=== PATIENT | male | born 1930 | race African-American/Black ===

== ENCOUNTER 2017-05-02 10:37 | Emergency (ER) | payer OTHER ==
[~2017-05-02] VITALS: Ht 177.8 cm; Wt 80.0 kg
[~2017-05-02 10:37] MED LIST: ALPR0.2582 PO; ATOR40TA70 PO; DONE10TA11 PO; FURO20TA4 PO; LISI-186 PO; RISP0.2514 PO
[2017-05-02] MEDS ORDERED: FLUMAZENIL 0.1 MG/ML 5ML VIAL IV ONE (11:15)
[2017-05-02 11:31] LABS: BASOPHILS % 0.5 % (0.0-2.0); EOSINOPHILS % 1.8 % (0.0-5.0); HEMATOCRIT. 38.5 % (42.0-52.0); HEMOGLOBIN. 13.4 g/dL (14.0-18.0); LYMPHOCYTES % 32.7 % (20.0-50.0); MEAN CORPUSCULAR HEMOGLOBIN 31.4 pg (28.0-32.0); MEAN CORPUSCULAR VOLUME 90.1 fL (80.0-94.0); MEAN PLATELET VOLUME 9.4 fl (7.4-10.4); MONOCYTES % 5.4 % (2.0-8.0); NEUTROPHILS % 59.6 % (40.0-76.0); PLATELET 130 x1000/uL (130-400); RED BLOOD CELL COUNT 4.27 mill/uL (4.7-6.1); RED CELL DISTRIBUTION WIDTH 12.8 % (11.6-14.6)
[2017-05-02 11:46] LABS: CARBON DIOXIDE 32 mEq/L (21-32); CHLORIDE 104 mEq/L (98-107); ETHANOL BLOOD < 10 mg/dL
[2017-05-02 12:08] LABS: CLARITY URINE CLOUDY (CLEAR); COLOR URINE YELLOW (YELLOW); GLUCOSE URINE NEGATIVE (NEGATIVE); KETONES URINE NEGATIVE (NEGATIVE); LEUKOCYTE ESTERASE URINE NEGATIVE (NEGATIVE); NITRITE URINE NEGATIVE (NEGATIVE); OCCULT BLOOD URINE NEGATIVE (NEGATIVE); PH URINE 5.5 (4.5-8.0); PROTEIN URINE NEGATIVE (NEGATIVE); SPECIFIC GRAVITY URINE 1.021 (1.005-1.030)
[2017-05-02 12:22] LABS: *AMPHETAMINES SCREEN URINE NEGATIVE (NEGATIVE); *BARBITURATES SCREEN URINE NEGATIVE (NEGATIVE); *BENZODIAZEPINES SCREEN URINE NEGATIVE (NEGATIVE); *COCAINE SCREEN URINE NEGATIVE (NEGATIVE); CANNABINOID URINE SCREEN NEGATIVE (NEGATIVE); METHADONE URINE SCREEN NEGATIVE (NEGATIVE); OPIATES URINE SCREEN NEGATIVE (NEGATIVE); PHENCYCLIDINE URINE SCREEN NEGATIVE (NEGATIVE)
[2017-05-02 17:53] VITALS: BP 135/58
== END 2017-05-02 18:00 | disposition short-term general hospital (02) ==
LOC: ER 10:46 → CANBEDREQ 20:02
DX: G93.40 Encephalopathy, unspecified (principal); J44.9 Chronic obstructive pulmonary disease, unspecified; I10 Essential (primary) hypertension; E78.00 Pure hypercholesterolemia, unspecified; F03.90 Unspecified dementia, unspecified severity, without behavioral disturbance, psychotic disturbance, mood disturbance, and anxiety
CPT/HCPCS: 36415; 70450; 71010; 80053; 80305; 81001; 82962; 84484; 85025; 93005; 96374; 99285; G0482; J3490

== ENCOUNTER 2017-07-02 11:51 | Inpatient (IN) | payer OTHER ==
[~2017-07-02] VITALS: Ht 180.3 cm; Wt 81.2 kg
[~2017-07-02 11:51] MED LIST changes: +ALPR0.25 PO; -ALPR0.2582 PO
[2017-07-02] MEDS ORDERED: SODIUM CHLORIDE 0.9% 1,000 ML IV ONE (12:01)
[2017-07-02 12:40] LABS: CLARITY URINE CLEAR (CLEAR); COLOR URINE YELLOW (YELLOW); GLUCOSE URINE NEGATIVE (NEGATIVE); KETONES URINE NEGATIVE (NEGATIVE); LEUKOCYTE ESTERASE URINE NEGATIVE (NEGATIVE); NITRITE URINE NEGATIVE (NEGATIVE); OCCULT BLOOD URINE NEGATIVE (NEGATIVE); PROTEIN URINE NEGATIVE (NEGATIVE); SPECIFIC GRAVITY URINE 1.021 (1.005-1.030); UROBILINOGEN URINE 0.2 E.U./dL (0.2-1.0)
[2017-07-02 12:52] LABS: BASOPHILS % 0.7 % (0.0-2.0); EOSINOPHILS % 1.9 % (0.0-5.0); HEMATOCRIT. 38.7 % (42.0-52.0); HEMOGLOBIN. 13.4 g/dL (14.0-18.0); MEAN CORPUSCULAR HEMOGLOBIN 31.5 pg (28.0-32.0); MEAN CORPUSCULAR VOLUME 91.2 fL (80.0-94.0); MEAN PLATELET VOLUME 9.9 fl (7.4-10.4); MONOCYTES % 6.3 % (2.0-8.0); NEUTROPHILS % 55.1 % (40.0-76.0); PLATELET 109 x1000/uL (130-400); RED BLOOD CELL COUNT 4.24 mill/uL (4.7-6.1); RED CELL DISTRIBUTION WIDTH 13.2 % (11.6-14.6)
[2017-07-02 12:56] LABS: INR 1.2; PROTHROMBIN TIME 12.2 sec (9.4-11.6)
[2017-07-02 12:59] LABS: AMMONIA 16 uMol/L (<32); CARBON DIOXIDE 30 mEq/L (21-32); CHLORIDE 106 mEq/L (98-107)
[2017-07-02 13:06] LABS: TROPONIN I < 0.02 ng/mL (0.00-0.04)
[2017-07-02 13:07] LABS: *AMPHETAMINES SCREEN URINE NEGATIVE (NEGATIVE); *BARBITURATES SCREEN URINE NEGATIVE (NEGATIVE); *BENZODIAZEPINES SCREEN URINE NEGATIVE (NEGATIVE); *COCAINE SCREEN URINE NEGATIVE (NEGATIVE); CANNABINOID URINE SCREEN NEGATIVE (NEGATIVE); METHADONE URINE SCREEN NEGATIVE (NEGATIVE); OPIATES URINE SCREEN NEGATIVE (NEGATIVE); PHENCYCLIDINE URINE SCREEN NEGATIVE (NEGATIVE)
[2017-07-02] MEDS ORDERED: GUAIFENESIN 200MG/10ML SUGAR FREE UDC PO PRN (17:30)
[2017-07-02] MEDS ORDERED: DOCUSATE SODIUM 100MG CAPSULE PO PRN (17:30)
[2017-07-02] MEDS ORDERED: ONDANSETRON HCL 4MG/2ML VIAL IV PRN (17:30)
[2017-07-02] MEDS ORDERED: ACETAMINOPHEN 325MG TABLET PO PRN (17:30)
[2017-07-02] MEDS ORDERED: NITROGLYCERIN 0.4MG TABLET SL SL PRN (17:30)
[2017-07-02] MEDS ORDERED: IPRATROPIUM/ALBUTEROL 0.5-3(2.5)MG/3ML NEB INH PRN (17:30)
[2017-07-02] MEDS ORDERED: CLONIDINE 0.1MG TABLET PO PRN (17:30)
[2017-07-02] MEDS ORDERED: MAGNESIUM/ALUMINUM HYDROXIDE/SIMETHICONE 30ML UDC PO PRN (17:30)
[2017-07-02] MEDS ORDERED: TRAMADOL 50MG TABLET PO PRN (18:00)
[2017-07-02] MEDS ORDERED: NA PHOS,M-B/NA PHOS,DI-BA ENEMA 118ML PR PRN (20:00)
[2017-07-02 22:37] VITALS: BP 131/58
[2017-07-02] MEDS: LISINOPRIL 20MG TABLET PO SCH (23:25)
[2017-07-02] MEDS: FAMOTIDINE 20MG/2ML VIAL IV SCH (23:25)
[2017-07-03] VITALS: BP 123/51
[2017-07-03 00:41] LABS: CREATINE KINASE 96 IU/L (39-308); CREATINE KINASE MB FRACTION 1.1 ng/mL (0.5-3.6); TROPONIN I < 0.02 ng/mL (0.00-0.04)
[2017-07-03] MEDS ORDERED: LEVOFLOXACIN 500MG PREMIX 100 ML IV SCH (02:00)
[2017-07-03] MEDS: HALOPERIDOL LACTATE 5MG/ML VIAL IM PRN ×2 (03:05→08:17)
[2017-07-03 04:00] VITALS: BP 107/49
[2017-07-03 07:15] LABS: CREATINE KINASE MB FRACTION 1.1 ng/mL (0.5-3.6); TROPONIN I 0.04 ng/mL (0.00-0.04)
[2017-07-03 07:48] VITALS: BP 108/60
[2017-07-03] MEDS ORDERED: ENOXAPARIN 40MG/0.4ML SYR SUBCUT SCH (09:00)
[2017-07-03] MEDS ORDERED: ASPIRIN 325MG EC TABLET PO SCH (09:00)
[2017-07-03] MEDS ORDERED: DONEPEZIL HCL 10MG TABLET PO SCH (09:00)
[2017-07-03 10:00] VITALS: BP 130/63
[2017-07-03] MEDS: FAMOTIDINE 20MG/2ML VIAL IV SCH (10:01)
[2017-07-03] MEDS: LISINOPRIL 20MG TABLET PO SCH (10:02)
[2017-07-03 12:00] VITALS: BP 118/61
[2017-07-03 16:00] VITALS: BP 122/66
== END 2017-07-03 17:10 | disposition short-term general hospital (02) | DRG 92 ==
LOC: ER 11:51 → 6WST 13:18 → EDBEDREQTM 13:24 → EDBEDREQ 13:24 → ENRESERV 19:04 → EDBEDREQ 21:55 → 6WST 22:56
PROVIDERS: ADMIT Internal Medicine; ATTEND Internal Medicine
DX: G92 Toxic encephalopathy (principal); J44.1 Chronic obstructive pulmonary disease with (acute) exacerbation; G30.9 Alzheimer's disease, unspecified; F02.80 Dementia in other diseases classified elsewhere, unspecified severity, without behavioral disturbance, psychotic disturbance, mood disturbance, and anxiety; E78.00 Pure hypercholesterolemia, unspecified; E78.5 Hyperlipidemia, unspecified; I10 Essential (primary) hypertension; Z86.73 Personal history of transient ischemic attack (TIA), and cerebral infarction without residual deficits
CPT/HCPCS: 36415; 70450; 71010; 80053; 80305; 80307; 80329; 81003; 82140; 82550; 82553; 83605; 83690; 83880; 84443; 84484; 85025; 85610; 87086; 93005; 99285; C1893; J1630; J1650; J1956; J3490; J7030; A4315

== ENCOUNTER 2017-09-25 18:36 | Emergency (ER) | payer OTHER ==
[~2017-09-25] VITALS: Ht 180.3 cm; Wt 98.0 kg
[2017-09-26 00:06] VITALS: BP 106/49
== END 2017-09-26 00:12 | disposition home or self-care (01) ==
LOC: ER 18:47
DX: F03.90 Unspecified dementia, unspecified severity, without behavioral disturbance, psychotic disturbance, mood disturbance, and anxiety (principal); J44.9 Chronic obstructive pulmonary disease, unspecified; I10 Essential (primary) hypertension; E78.00 Pure hypercholesterolemia, unspecified; Z86.73 Personal history of transient ischemic attack (TIA), and cerebral infarction without residual deficits; W18.30XA Fall on same level, unspecified, initial encounter; Y93.89 Activity, other specified; Y99.8 Other external cause status; Y92.89 Other specified places as the place of occurrence of the external cause
CPT/HCPCS: 70450; 99284

== ENCOUNTER 2017-09-27 19:08 | Inpatient (IN) | payer OTHER ==
[~2017-09-27] VITALS: Ht 180.3 cm; Wt 72.1 kg
[2017-09-27 20:51] LABS: CLARITY URINE CLEAR (CLEAR); COLOR URINE YELLOW (YELLOW); KETONES URINE TRACE (NEGATIVE); LEUKOCYTE ESTERASE URINE TRACE (NEGATIVE); NITRITE URINE NEGATIVE (NEGATIVE); OCCULT BLOOD URINE TRACE (NEGATIVE); PROTEIN URINE TRACE (NEGATIVE); SPECIFIC GRAVITY URINE 1.019 (1.005-1.030)
[2017-09-27 21:17] LABS: BASOPHILS % 0.2 % (0.0-2.0); EOSINOPHILS % 1.3 % (0.0-5.0); HEMATOCRIT. 39.1 % (42.0-52.0); HEMOGLOBIN. 13.6 g/dL (14.0-18.0); LYMPHOCYTES % 25.1 % (20.0-50.0); MEAN CORPUSCULAR HEMOGLOBIN 31.5 pg (28.0-32.0); MEAN CORPUSCULAR VOLUME 90.5 fL (80.0-94.0); MEAN PLATELET VOLUME 9.5 fl (7.4-10.4); MONOCYTES % 7.6 % (2.0-8.0); NEUTROPHILS % 65.8 % (40.0-76.0); PLATELET 156 x1000/uL (130-400); RED BLOOD CELL COUNT 4.32 mill/uL (4.7-6.1)
[2017-09-27 21:21] LABS: INR 1.1; PROTHROMBIN TIME 11.8 sec (9.4-11.6)
[2017-09-27 21:29] LABS: CARBON DIOXIDE 26 mEq/L (21-32); CHLORIDE 103 mEq/L (98-107)
[2017-09-27 21:30] LABS: AMMONIA 26 uMol/L (<32)
[2017-09-27] MEDS ORDERED: LORAZEPAM 2MG/ML CPJ IV ONE (21:30)
[2017-09-27 21:34] LABS: CREATINE KINASE 199 IU/L (39-308); TROPONIN I < 0.02 ng/mL (0.00-0.04)
[2017-09-28] VITALS (7 sets, daily range): BP systolic 93–117; BP diastolic 56–69
[2017-09-28] MEDS ORDERED: CEFTRIAXONE 1 G PREMIX 50 ML IV ONE (00:45)
[2017-09-28] MEDS ORDERED: ACETAMINOPHEN 325MG TABLET PO PRN (05:15)
[2017-09-28] MEDS ORDERED: HYDROCODONE/ACETAMINOPHEN 5/325MG TABLET PO PRN (05:15)
[2017-09-28] MEDS ORDERED: CLONIDINE 0.1MG TABLET PO PRN (05:15)
[2017-09-28] MEDS: SODIUM CHLORIDE 0.45% 1,000 ML IV SCH ×2 (05:53→17:24)
[2017-09-28] MEDS: ENOXAPARIN 40MG/0.4ML SYR SUBCUT SCH (09:00)
[2017-09-28] MEDS: LISINOPRIL 5MG TABLET PO SCH (09:00)
[2017-09-28] MEDS: FUROSEMIDE 20MG TABLET PO SCH (09:31)
[2017-09-28] MEDS: RISPERIDONE 0.25MG TABLET PO SCH ×2 (09:31→17:24)
[2017-09-28] MEDS: DONEPEZIL HCL 10MG TABLET PO SCH (09:31)
[2017-09-28] MEDS ORDERED: LORAZEPAM 1MG TABLET PO PRN (15:00)
[2017-09-28] MEDS ORDERED: LORAZEPAM 2MG/ML CPJ IV PRN (15:00)
[2017-09-28] MEDS ORDERED: ALPRAZOLAM 0.25 MG TABLET PO SCH (21:00)
[2017-09-28] MEDS ORDERED: ATORVASTATIN CALCIUM 40MG TABLET PO SCH (21:00)
[2017-09-29] VITALS: BP 119/63
[2017-09-29 04:00] VITALS: BP 129/64
[2017-09-29 08:00] VITALS: BP 139/61
[2017-09-29 08:20] LABS: BASOPHILS % 0.3 % (0.0-2.0); EOSINOPHILS % 1.4 % (0.0-5.0); HEMATOCRIT. 39.1 % (42.0-52.0); HEMOGLOBIN. 13.7 g/dL (14.0-18.0); LYMPHOCYTES % 21.9 % (20.0-50.0); MEAN CORPUSCULAR HEMOGLOBIN 31.8 pg (28.0-32.0); MEAN CORPUSCULAR VOLUME 90.4 fL (80.0-94.0); MEAN PLATELET VOLUME 9.5 fl (7.4-10.4); MONOCYTES % 6.7 % (2.0-8.0); NEUTROPHILS % 69.7 % (40.0-76.0); PLATELET 156 x1000/uL (130-400); RED BLOOD CELL COUNT 4.33 mill/uL (4.7-6.1); RED CELL DISTRIBUTION WIDTH 13.3 % (11.6-14.6)
[2017-09-29 08:42] LABS: CHLORIDE 104 mEq/L (98-107)
[2017-09-29 08:47] LABS: CARBON DIOXIDE 27 mEq/L (21-32)
[2017-09-29] MEDS: ENOXAPARIN 40MG/0.4ML SYR SUBCUT SCH (09:43)
[2017-09-29] MEDS: LISINOPRIL 5MG TABLET PO SCH (09:43)
[2017-09-29] MEDS: DONEPEZIL HCL 10MG TABLET PO SCH (09:43)
[2017-09-29] MEDS: FUROSEMIDE 20MG TABLET PO SCH (09:43)
[2017-09-29] MEDS: RISPERIDONE 0.25MG TABLET PO SCH (09:43)
[2017-09-29 12:00] VITALS: BP 103/49
[2017-09-29 15:54] VITALS: BP 100/57
[2017-09-29 16:00] VITALS: BP 100/57
== END 2017-09-29 16:24 | disposition short-term general hospital (02) | DRG 71 ==
LOC: ER 19:13 → ENRESERV 09-28 02:23 → 7WST 09-28 03:20
PROVIDERS: ADMIT Internal Medicine; ATTEND Internal Medicine
DX: G93.41 Metabolic encephalopathy (principal); E46 Unspecified protein-calorie malnutrition; I50.9 Heart failure, unspecified; E86.0 Dehydration; I11.0 Hypertensive heart disease with heart failure; G40.909 Epilepsy, unspecified, not intractable, without status epilepticus; F03.90 Unspecified dementia, unspecified severity, without behavioral disturbance, psychotic disturbance, mood disturbance, and anxiety; E78.00 Pure hypercholesterolemia, unspecified; I25.10 Atherosclerotic heart disease of native coronary artery without angina pectoris; Z79.899 Other long term (current) drug therapy; Z68.22 Body mass index [BMI] 22.0-22.9, adult
CPT/HCPCS: 36415; 71010; 80048; 80053; 81001; 82140; 82550; 83605; 83880; 84443; 84484; 85025; 85610; 87040; 87086; 93005; J0696; J1650; J2060

== ENCOUNTER 2017-10-15 19:20 | Emergency (ER) | payer OTHER ==
[~2017-10-15] VITALS: Ht 180.3 cm; Wt 87.0 kg
[2017-10-15 23:30] LABS: BASOPHILS % 0.8 % (0.0-2.0); HEMATOCRIT. 37.3 % (42.0-52.0); HEMOGLOBIN. 12.6 g/dL (14.0-18.0); LYMPHOCYTES % 21.1 % (20.0-50.0); MEAN CORPUSCULAR HEMOGLOBIN 31.1 pg (28.0-32.0); MEAN CORPUSCULAR VOLUME 91.9 fL (80.0-94.0); MEAN PLATELET VOLUME 9.4 fl (7.4-10.4); MONOCYTES % 6.8 % (2.0-8.0); NEUTROPHILS % 69.3 % (40.0-76.0); PLATELET 150 x1000/uL (130-400); RED BLOOD CELL COUNT 4.06 mill/uL (4.7-6.1)
[2017-10-15 23:44] LABS: CARBON DIOXIDE 29 mEq/L (21-32); CHLORIDE 106 mEq/L (98-107)
[2017-10-16 05:20] VITALS: BP 112/71
== END 2017-10-16 05:26 | disposition home or self-care (01) ==
LOC: ER 19:23
DX: J06.9 Acute upper respiratory infection, unspecified (principal); F03.90 Unspecified dementia, unspecified severity, without behavioral disturbance, psychotic disturbance, mood disturbance, and anxiety; I10 Essential (primary) hypertension; G40.909 Epilepsy, unspecified, not intractable, without status epilepticus; E78.00 Pure hypercholesterolemia, unspecified; F17.210 Nicotine dependence, cigarettes, uncomplicated
CPT/HCPCS: 36415; 71045; 80053; 85025; 99285

== ENCOUNTER 2017-10-20 18:25 | Emergency (ER) | payer OTHER ==
[~2017-10-20] VITALS: Ht 175.3 cm; Wt 85.0 kg
[2017-10-20] MEDS ORDERED: ACETAMINOPHEN 325MG TABLET PO STA (18:41)
[2017-10-20] MEDS ORDERED: METOCLOPRAMIDE HCL 10MG/2ML VIAL IV ONE (18:45)
[2017-10-20 20:09] LABS: BASOPHILS % 0.4 % (0.0-2.0); HEMATOCRIT. 35.8 % (42.0-52.0); LYMPHOCYTES % 34.8 % (20.0-50.0); MEAN CORPUSCULAR HEMOGLOBIN 30.9 pg (28.0-32.0); MEAN CORPUSCULAR VOLUME 92.1 fL (80.0-94.0); MEAN PLATELET VOLUME 9.3 fl (7.4-10.4); MONOCYTES % 7.4 % (2.0-8.0); NEUTROPHILS % 53.4 % (40.0-76.0); PLATELET 145 x1000/uL (130-400); RED BLOOD CELL COUNT 3.89 mill/uL (4.7-6.1); RED CELL DISTRIBUTION WIDTH 13.9 % (11.6-14.6)
[2017-10-20 20:17] LABS: INR 1.2; PROTHROMBIN TIME 12.1 sec (9.4-11.6)
[2017-10-20 20:24] LABS: CHLORIDE 107 mEq/L (98-107)
[2017-10-20 20:35] LABS: CARBON DIOXIDE 28 mEq/L (21-32)
[2017-10-20 21:32] LABS: CLARITY URINE CLEAR (CLEAR); COLOR URINE YELLOW (YELLOW); KETONES URINE NEGATIVE (NEGATIVE); LEUKOCYTE ESTERASE URINE NEGATIVE (NEGATIVE); NITRITE URINE NEGATIVE (NEGATIVE); OCCULT BLOOD URINE NEGATIVE (NEGATIVE); PH URINE 6.5 (4.5-8.0); PROTEIN URINE NEGATIVE (NEGATIVE)
[2017-10-21 00:48] VITALS: BP 116/72
== END 2017-10-21 00:51 | disposition home or self-care (01) ==
LOC: ER 18:46
DX: F03.90 Unspecified dementia, unspecified severity, without behavioral disturbance, psychotic disturbance, mood disturbance, and anxiety (principal); I10 Essential (primary) hypertension; E78.00 Pure hypercholesterolemia, unspecified; R79.1 Abnormal coagulation profile
CPT/HCPCS: 36415; 70450; 71045; 80053; 81003; 83605; 83880; 85025; 85610; 87040; 87086; 93005; 96374; 99285; J2765

== ENCOUNTER 2017-11-22 15:05 | Emergency (ER) | payer OTHER ==
[~2017-11-22] VITALS: Ht 182.9 cm; Wt 75.0 kg
[~2017-11-22 15:05] MED LIST changes: -DONE10TA11 PO; +KEPP500 PO
[2017-11-22 16:31] LABS: INR 1.2
[2017-11-22 16:33] LABS: BASOPHILS % 0.6 % (0.0-2.0); EOSINOPHILS % 2.4 % (0.0-5.0); HEMATOCRIT. 38.3 % (42.0-52.0); HEMOGLOBIN. 13.3 g/dL (14.0-18.0); LYMPHOCYTES % 37.4 % (20.0-50.0); MEAN CORPUSCULAR HEMOGLOBIN 31.6 pg (28.0-32.0); MEAN CORPUSCULAR VOLUME 91.1 fL (80.0-94.0); MONOCYTES % 7.3 % (2.0-8.0); NEUTROPHILS % 52.3 % (40.0-76.0); PLATELET 111 x1000/uL (130-400); RED CELL DISTRIBUTION WIDTH 13.1 % (11.6-14.6)
[2017-11-22 16:35] LABS: AMMONIA < 25 uMol/L (<32)
[2017-11-22 16:42] LABS: CHLORIDE 101 mEq/L (98-107); ETHANOL BLOOD < 10 mg/dL; TROPONIN I < 0.02 ng/mL (0.00-0.04)
[2017-11-22 21:30] VITALS: BP 111/50
== END 2017-11-22 21:47 | disposition home or self-care (01) ==
LOC: ER 15:30
DX: F03.90 Unspecified dementia, unspecified severity, without behavioral disturbance, psychotic disturbance, mood disturbance, and anxiety (principal); R41.82 Altered mental status, unspecified; I48.91 Unspecified atrial fibrillation; D64.9 Anemia, unspecified; E78.00 Pure hypercholesterolemia, unspecified; I11.0 Hypertensive heart disease with heart failure; I50.9 Heart failure, unspecified; G40.909 Epilepsy, unspecified, not intractable, without status epilepticus
CPT/HCPCS: 36415; 80053; 80307; 80329; 82140; 82962; 84443; 84484; 85025; 85610; 93005; 99285; G0482

== ENCOUNTER 2017-12-19 07:10 | Emergency (ER) | payer OTHER ==
[~2017-12-19] VITALS: Ht 175.3 cm; Wt 73.0 kg
[2017-12-19 08:14] LABS: HEMATOCRIT. 41.6 % (42.0-52.0); HEMOGLOBIN. 14.1 g/dL (14.0-18.0); MEAN CORPUSCULAR HEMOGLOBIN 31.2 pg (28.0-32.0); MEAN CORPUSCULAR VOLUME 91.9 fL (80.0-94.0); MEAN PLATELET VOLUME 9.3 fl (7.4-10.4); PLATELET 147 x1000/uL (130-400); RED BLOOD CELL COUNT 4.52 mill/uL (4.7-6.1)
[2017-12-19 08:20] LABS: CHLORIDE 106 mEq/L (98-107); INR 1.1; PROTHROMBIN TIME 11.8 sec (9.4-11.6)
[2017-12-19 08:39] LABS: PLATELET ESTIMATE NORMAL
[2017-12-19 11:32] LABS: CLARITY URINE CLEAR (CLEAR); COLOR URINE YELLOW (YELLOW); KETONES URINE NEGATIVE (NEGATIVE); LEUKOCYTE ESTERASE URINE NEGATIVE (NEGATIVE); NITRITE URINE NEGATIVE (NEGATIVE); OCCULT BLOOD URINE NEGATIVE (NEGATIVE); PH URINE 6.5 (4.5-8.0); PROTEIN URINE NEGATIVE (NEGATIVE); SPECIFIC GRAVITY URINE 1.013 (1.005-1.030); UROBILINOGEN URINE 0.2 E.U./dL (0.2-1.0)
[2017-12-19 15:25] VITALS: BP 132/76
== END 2017-12-19 15:40 | disposition home or self-care (01) ==
LOC: ER 07:26
DX: R53.1 Weakness (principal); F03.90 Unspecified dementia, unspecified severity, without behavioral disturbance, psychotic disturbance, mood disturbance, and anxiety
CPT/HCPCS: 36415; 70450; 71045; 80053; 81003; 83605; 85025; 85610; 87040; 87086; 93005; 99285

== ENCOUNTER 2017-12-24 17:32 | Emergency (ER) | payer OTHER ==
[~2017-12-24] VITALS: Ht 177.8 cm; Wt 77.0 kg
[2017-12-24 17:35] VITALS: BP 108/55
[2017-12-24 19:10] LABS: BASOPHILS % 0.4 % (0.0-2.0); CHLORIDE 108 mEq/L (98-107); EOSINOPHILS % 2.5 % (0.0-5.0); HEMATOCRIT. 37.6 % (42.0-52.0); HEMOGLOBIN. 12.8 g/dL (14.0-18.0); LYMPHOCYTES % 33.3 % (20.0-50.0); MEAN CORPUSCULAR HEMOGLOBIN 31.4 pg (28.0-32.0); MEAN CORPUSCULAR VOLUME 91.9 fL (80.0-94.0); MEAN PLATELET VOLUME 9.3 fl (7.4-10.4); MONOCYTES % 7.8 % (2.0-8.0); PLATELET 119 x1000/uL (130-400); RED BLOOD CELL COUNT 4.09 mill/uL (4.7-6.1); RED CELL DISTRIBUTION WIDTH 12.9 % (11.6-14.6)
== END 2017-12-24 23:35 | disposition home or self-care (01) ==
LOC: ER 17:42
DX: R06.00 Dyspnea, unspecified (principal); I11.9 Hypertensive heart disease without heart failure; R00.1 Bradycardia, unspecified; I49.1 Atrial premature depolarization; F02.80 Dementia in other diseases classified elsewhere, unspecified severity, without behavioral disturbance, psychotic disturbance, mood disturbance, and anxiety; G30.9 Alzheimer's disease, unspecified
CPT/HCPCS: 36415; 71045; 80053; 82962; 83880; 84484; 85025; 93005; 99285

== ENCOUNTER 2018-01-21 23:14 | Emergency (ER) | payer OTHER ==
[~2018-01-21] VITALS: Ht 182.9 cm; Wt 75.0 kg
[2018-01-22 00:38] LABS: BASOPHILS % 0.7 % (0.0-2.0); EOSINOPHILS % 1.3 % (0.0-5.0); HEMATOCRIT. 37.3 % (42.0-52.0); LYMPHOCYTES % 31.2 % (20.0-50.0); MEAN CORPUSCULAR HEMOGLOBIN 31.6 pg (28.0-32.0); MEAN CORPUSCULAR VOLUME 90.6 fL (80.0-94.0); MEAN PLATELET VOLUME 8.9 fl (7.4-10.4); MONOCYTES % 7.5 % (2.0-8.0); NEUTROPHILS % 59.3 % (40.0-76.0); PLATELET 123 x1000/uL (130-400); RED BLOOD CELL COUNT 4.11 mill/uL (4.7-6.1); RED CELL DISTRIBUTION WIDTH 13.3 % (11.6-14.6)
[2018-01-22 00:45] LABS: CHLORIDE 109 mEq/L (98-107); INR 1.2
[2018-01-22 00:49] LABS: ETHANOL BLOOD < 10 mg/dL
[2018-01-22 00:54] LABS: CREATINE KINASE 57 IU/L (39-308)
[2018-01-22 05:44] LABS: CLARITY URINE CLEAR (CLEAR); COLOR URINE YELLOW (YELLOW); KETONES URINE NEGATIVE (NEGATIVE); LEUKOCYTE ESTERASE URINE NEGATIVE (NEGATIVE); NITRITE URINE NEGATIVE (NEGATIVE); OCCULT BLOOD URINE NEGATIVE (NEGATIVE); PH URINE 5.5 (4.5-8.0); PROTEIN URINE NEGATIVE (NEGATIVE); SPECIFIC GRAVITY URINE 1.027 (1.005-1.030); UROBILINOGEN URINE 0.2 E.U./dL (0.2-1.0)
[2018-01-22 06:20] LABS: *BARBITURATES SCREEN URINE NEGATIVE (NEGATIVE); *BENZODIAZEPINES SCREEN URINE NEGATIVE (NEGATIVE); *COCAINE SCREEN URINE NEGATIVE (NEGATIVE); CANNABINOID URINE SCREEN NEGATIVE (NEGATIVE); METHADONE URINE SCREEN NEGATIVE (NEGATIVE); OPIATES URINE SCREEN NEGATIVE (NEGATIVE)
[2018-01-22 06:21] LABS: *AMPHETAMINES SCREEN URINE NEGATIVE (NEGATIVE)
[2018-01-22 06:46] LABS: PHENCYCLIDINE URINE SCREEN NEGATIVE (NEGATIVE)
[2018-01-22 08:09] VITALS: BP 126/59
== END 2018-01-22 08:16 | disposition short-term general hospital (02) ==
LOC: ER 23:14
DX: R41.82 Altered mental status, unspecified (principal); G40.909 Epilepsy, unspecified, not intractable, without status epilepticus; R00.1 Bradycardia, unspecified
CPT/HCPCS: 36415; 70450; 71045; 80053; 80185; 80305; 80307; 80329; 81003; 82550; 84443; 84484; 85025; 85610; 86850; 86900; 86901; 93005; 99285; G0482

== ENCOUNTER 2018-03-22 13:38 | Emergency (ER) | payer OTHER ==
[~2018-03-22] VITALS: Ht 172.7 cm; Wt 59.0 kg
[~2018-03-22 13:38] MED LIST changes: -ALPR0.25 PO
[2018-03-22] MEDS ORDERED: SODIUM CHLORIDE 0.9% 1000ML BAG (SEPSIS BOLUS) IV ONE (14:30)
[2018-03-22 15:11] LABS: CHLORIDE 105 mEq/L (98-107); PROTHROMBIN TIME 21.4 sec (9.4-11.6)
[2018-03-22 15:21] LABS: BASOPHILS % 0.3 % (0.0-2.0); EOSINOPHILS % 1.8 % (0.0-5.0); HEMATOCRIT. 33.3 % (42.0-52.0); HEMOGLOBIN. 11.3 g/dL (14.0-18.0); LYMPHOCYTES % 23.5 % (20.0-50.0); MEAN CORPUSCULAR HEMOGLOBIN 32.2 pg (28.0-32.0); MEAN PLATELET VOLUME 7.7 fl (7.4-10.4); MONOCYTES % 6.3 % (2.0-8.0); NEUTROPHILS % 68.1 % (40.0-76.0); PLATELET 444 x1000/uL (130-400); RED CELL DISTRIBUTION WIDTH 15.7 % (11.6-14.6)
[2018-03-22 16:23] LABS: CLARITY URINE CLEAR (CLEAR); COLOR URINE DARK YELLOW (YELLOW); KETONES URINE NEGATIVE (NEGATIVE); LEUKOCYTE ESTERASE URINE NEGATIVE (NEGATIVE); NITRITE URINE NEGATIVE (NEGATIVE); OCCULT BLOOD URINE NEGATIVE (NEGATIVE); PH URINE 5.5 (4.5-8.0); PROTEIN URINE NEGATIVE (NEGATIVE); SPECIFIC GRAVITY URINE 1.023 (1.005-1.030)
[2018-03-22] MEDS ORDERED: IOHEXOL-300 100 ML BOTTLE ONE (17:59)
[2018-03-22 23:05] VITALS: BP 125/69
== END 2018-03-22 23:15 | disposition home or self-care (01) ==
LOC: ER 13:38 → CANBEDREQ 20:42 → ER 23:15
DX: R11.2 Nausea with vomiting, unspecified (principal); R19.7 Diarrhea, unspecified; R53.1 Weakness; R40.0 Somnolence; I10 Essential (primary) hypertension; F03.90 Unspecified dementia, unspecified severity, without behavioral disturbance, psychotic disturbance, mood disturbance, and anxiety; R79.1 Abnormal coagulation profile
CPT/HCPCS: 36415; 70450; 71045; 74177; 80053; 81003; 83605; 85025; 85610; 87040; 87086; 93005; 96360; 96361; 99285; J7030; Q9967; A4315

== ENCOUNTER 2018-03-28 16:46 | Emergency (ER) | payer OTHER ==
[~2018-03-28] VITALS: Ht 177.8 cm; Wt 59.0 kg
[2018-03-28 22:22] VITALS: BP 113/57
== END 2018-03-28 22:25 | disposition home or self-care (01) ==
LOC: ER 16:46
DX: Z48.02 Encounter for removal of sutures (principal); F03.90 Unspecified dementia, unspecified severity, without behavioral disturbance, psychotic disturbance, mood disturbance, and anxiety; I10 Essential (primary) hypertension
CPT/HCPCS: 99283

== ENCOUNTER 2018-04-20 11:50 | Inpatient (IN) | payer OTHER ==
[~2018-04-20] VITALS: Ht 170.2 cm; Wt 27.2 kg
[2018-04-20] MEDS ORDERED: SODIUM CHLORIDE 0.9% 500 ML IV ONE (12:10)
[2018-04-20] MEDS ORDERED: ONDANSETRON HCL 4MG/2ML VIAL IV STA (12:10)
[2018-04-20 12:48] LABS: CHLORIDE 102 mEq/L (98-107)
[2018-04-20 12:49] LABS: INR 1.2; PROTHROMBIN TIME 12.5 sec (9.4-11.6)
[2018-04-20 12:55] LABS: BASOPHILS % 0.6 % (0.0-2.0); EOSINOPHILS % 1.8 % (0.0-5.0); HEMATOCRIT. 39.4 % (42.0-52.0); HEMOGLOBIN. 13.3 g/dL (14.0-18.0); LYMPHOCYTES % 23.6 % (20.0-50.0); MEAN CORPUSCULAR HEMOGLOBIN 31.3 pg (28.0-32.0); MONOCYTES % 6.8 % (2.0-8.0); NEUTROPHILS % 67.2 % (40.0-76.0); PLATELET 216 x1000/uL (130-400); RED BLOOD CELL COUNT 4.23 mill/uL (4.7-6.1); RED CELL DISTRIBUTION WIDTH 14.4 % (11.6-14.6)
[2018-04-20 14:07] LABS: CLARITY URINE CLOUDY (CLEAR); COLOR URINE YELLOW (YELLOW); KETONES URINE NEGATIVE (NEGATIVE); LEUKOCYTE ESTERASE URINE 3+ (NEGATIVE); NITRITE URINE POSITIVE (NEGATIVE); OCCULT BLOOD URINE 1+ (NEGATIVE); PH URINE 5.5 (4.5-8.0); PROTEIN URINE TRACE (NEGATIVE); SPECIFIC GRAVITY URINE 1.014 (1.005-1.030); UROBILINOGEN URINE 0.2 E.U./dL (0.2-1.0)
[2018-04-20] MEDS ORDERED: CEFTRIAXONE 1 G PREMIX 50 ML IV ONE (15:15)
[2018-04-20 20:39] VITALS: BP 107/57
[2018-04-20 20:40] VITALS: BP 107/57
[2018-04-20] MEDS ORDERED: ONDANSETRON HCL 4MG/2ML VIAL IV PRN (22:00)
[2018-04-20] MEDS ORDERED: ACETAMINOPHEN 325MG TABLET PO PRN (22:00)
[2018-04-20] MEDS ORDERED: CLONIDINE 0.1MG TABLET PO PRN (22:00)
[2018-04-20] MEDS: DEXT 5%/0.45% NACL 1000ML 1,000 ML IV SCH (22:50)
[2018-04-20] MEDS ORDERED: LEVOFLOXACIN 500MG PREMIX 100 ML IV SCH (23:00)
[2018-04-21] VITALS: BP 104/57
[2018-04-21 07:16] LABS: CHLORIDE 107 mEq/L (98-107)
[2018-04-21 07:31] LABS: BASOPHILS % 0.5 % (0.0-2.0); EOSINOPHILS % 2.7 % (0.0-5.0); HEMATOCRIT. 32.9 % (42.0-52.0); HEMOGLOBIN. 11.1 g/dL (14.0-18.0); LYMPHOCYTES % 24.5 % (20.0-50.0); MEAN CORPUSCULAR HEMOGLOBIN 31.3 pg (28.0-32.0); MEAN CORPUSCULAR VOLUME 92.6 fL (80.0-94.0); MEAN PLATELET VOLUME 8.5 fl (7.4-10.4); MONOCYTES % 6.7 % (2.0-8.0); NEUTROPHILS % 65.6 % (40.0-76.0); PLATELET 186 x1000/uL (130-400); RED BLOOD CELL COUNT 3.55 mill/uL (4.7-6.1); RED CELL DISTRIBUTION WIDTH 13.9 % (11.6-14.6)
[2018-04-21 08:00] VITALS: BP 114/59
[2018-04-21] MEDS ORDERED: PNEUMOCOCCAL 23-VAL P-SAC VAC 0.5 ML IM ONE (10:00)
[2018-04-21 12:00] VITALS: BP_SYST 112; BP_SYST 119; BP_DIAS 64; BP_DIAS 69
[2018-04-21] MEDS: DEXT 5%/0.45% NACL 1000ML 1,000 ML IV SCH (13:31)
[2018-04-21 16:00] VITALS: BP_SYST 116; BP_SYST 119; BP_DIAS 64; BP_DIAS 67; BP_DIAS 69
[2018-04-21 19:42] VITALS: BP 119/64
== END 2018-04-21 22:01 | disposition short-term general hospital (02) | DRG 689 ==
LOC: ER 11:52 → 8WST 16:15 → EDBEDREQ 16:16 → EDBEDREQTM 16:16 → ENRESERV 19:56
PROVIDERS: ADMIT Internal Medicine; ATTEND Internal Medicine
DX: N39.0 Urinary tract infection, site not specified (principal); G93.41 Metabolic encephalopathy; E78.00 Pure hypercholesterolemia, unspecified; F03.90 Unspecified dementia, unspecified severity, without behavioral disturbance, psychotic disturbance, mood disturbance, and anxiety; G40.909 Epilepsy, unspecified, not intractable, without status epilepticus; I10 Essential (primary) hypertension; Z96.653 Presence of artificial knee joint, bilateral; M19.90 Unspecified osteoarthritis, unspecified site; Z79.899 Other long term (current) drug therapy
CPT/HCPCS: 36415; 71045; 80048; 80053; 81003; 82270; 83690; 83880; 84484; 85025; 85610; 87077; 87086; 87186; 93005; 93970; 96361; 96365; 96366; 99285; C1893; J0696; J1956; J2405; J3490; J7040

== ENCOUNTER 2018-04-26 11:11 | Emergency (ER) | payer OTHER ==
[~2018-04-26] VITALS: Ht 177.8 cm; Wt 65.0 kg
[2018-04-26 12:25] LABS: BASOPHILS % 0.6 % (0.0-2.0); EOSINOPHILS % 2.7 % (0.0-5.0); HEMATOCRIT. 35.7 % (42.0-52.0); LYMPHOCYTES % 31.8 % (20.0-50.0); MEAN CORPUSCULAR HEMOGLOBIN 31.3 pg (28.0-32.0); MEAN PLATELET VOLUME 8.3 fl (7.4-10.4); MONOCYTES % 4.9 % (2.0-8.0); PLATELET 181 x1000/uL (130-400); RED BLOOD CELL COUNT 3.84 mill/uL (4.7-6.1); RED CELL DISTRIBUTION WIDTH 13.5 % (11.6-14.6)
[2018-04-26 12:32] LABS: CHLORIDE 107 mEq/L (98-107)
[2018-04-26 12:34] LABS: INR 1.1; PROTHROMBIN TIME 11.5 sec (9.4-11.6)
[2018-04-26 12:38] LABS: ETHANOL BLOOD < 10 mg/dL
[2018-04-26 18:42] VITALS: BP 135/61
== END 2018-04-26 18:51 | disposition short-term general hospital (02) ==
LOC: ER 11:11 → CANBEDREQ 21:01
DX: G31.9 Degenerative disease of nervous system, unspecified (principal); I10 Essential (primary) hypertension; F03.90 Unspecified dementia, unspecified severity, without behavioral disturbance, psychotic disturbance, mood disturbance, and anxiety
CPT/HCPCS: 36415; 70450; 71045; 80053; 83605; 83880; 84484; 85025; 85610; 87040; 93005; 99285; G0482